=== PATIENT | female | born 1940 | race Caucasian/White ===

== ENCOUNTER 2016-09-20 16:28 | Emergency (ER) | payer MEDICARE, OTHER ==
--- NOTE | ~2016-09-20 | CR2 ---
[facility] A Service of [place] [facility] RADIOLOGY TEXT RESULTS PATIENT: AL JHA LOCATION: [facility] : 36 UNIT #: [id number] AGE: [address]: Julio Huddleston MD SEX: F ORDER DR: [id number] [facility] [place] [address] [place], [place] [address] [id number] MR#: [id number] Acc #: [id number] NAME: AL JHA. : 1940 SEX: F STUDY DATE/TIME: 09/20/2016 17:12 UNIT: [facility] ROOM: STUDY DESCRIPTION: CR Abdomen Acute Series Attending Physician: Jona Huddleston M.D. Ordering Physician: Ed Doc Gilberto Guzman Primary Care Physician: Yeison Davis M.D. MEDICAL IMAGING REPORT This report is preliminary unless electronic signature is present EXAM Acute abdominal series, 09/20/2016 COMPARISON None. CLINICAL HISTORY Nausea and vomiting and abdominal pain for 1 week. FINDINGS Accompanying chest radiograph shows no acute disease. Bowel gas pattern is normal. There is no free air or evidence of obstruction. IMPRESSION No acute disease. No evidence of free air or obstruction or other acute abnormality. Dictated by... Bandar Rodriguez M.D. THIS IS AN ELECTRONICALLY VERIFIED REPORT Bandar Rodriguez M.D. at 09/22/2016 9:45 AM TEV/psc TD: 09/20/2016 21:50 JOB #: [id number] MEDICAL IMAGING REPORT Page 1 of 1 COPY
--- NOTE | ~2016-09-20 | CT71 ---
[facility] A Service of [facility] RADIOLOGY TEXT RESULTS PATIENT: AL JHA LOCATION: [facility] : 38 UNIT #: [id number] AGE: [address]: Julio Huddleston MD SEX: F ORDER DR: [id number] [facility] [address] [place], [place] [address] [id number] E MR#: [id number] Acc #: [id number] NAME: AL JHA. : 1940 SEX: F STUDY DATE/TIME: 09/20/2016 16:44 UNIT: [facility] ROOM: STUDY DESCRIPTION: CT Head Wo Contrast Attending Physician: Jona Huddleston M.D. Ordering Physician: Ed Doctor [id number] [facility] Primary Care Physician: Yeison Davis M.D. MEDICAL IMAGING REPORT This report is preliminary unless electronic signature is present EXAM CT head without contrast dated 09/20/2016. COMPARISON CT head without contrast dated 09/20/13. HISTORY Headache, nausea, vomiting for [address] exam was performed with one or more of the following radiation dose reduction techniques: automatic exposure control, adjustment of mA and/or kV according to patient size, and iterative reconstruction. FINDINGS CT of the head was obtained without contrast in the axial plane as per the protocol. No acute intracranial hemorrhage, space-occupying mass, mass effect, midline shift or hydrocephalus. There is a small hypodense lesion noted in the lateral aspect of the region of the right anterior commissure in the inferolateral aspect of the right basal ganglia, stable. It could be related to perivascular benign Virchow-John space. An old insult with area of gliosis and encephalomalacia change is next in the differential consideration. No acute intracranial hemorrhage, hydrocephalus or midline shift is seen. Paranasal sinus mucosal thickening is noted, relatively worse in bilateral ethmoid sinuses where it is moderate. There is a small amount of fluid in the right maxillary antrum. Nasal septum is deviated to the left. Imaged orbits and the ocular structures do not demonstrate any significant abnormality. Mastoid air cells are well-aerated. Skull is unremarkable. IMPRESSION 1. No demonstrable acute intracranial abnormality. [facility] A Service of [facility] & [facility] RADIOLOGY TEXT RESULTS PATIENT: AL JHA LOCATION: [facility] : 36 UNIT #: [id number] AGE: [address]: Julio Huddleston MD SEX: F ORDER DR: 2. There is paranasal sinus mucosal thickening, worse in bilateral ethmoid and right maxillary antrum. Correlate with [id number] sinusitis, particularly in the right maxillary antrum Dictated by... Naheed Elias M.D. THIS IS AN ELECTRONICALLY VERIFIED REPORT Naheed Elias M.D. at 09/22/2016 3:02 PM CPR/ea TD: 09/20/2016 21:49 JOB #: [id number] MEDICAL IMAGING REPORT Page 1 of 1 COPY
[2016-09-20 16:11] LABS: BASOPHIL% 0.4 % (0-2.5); EOSINOPHIL# 0.1 X10e3 (0-0.7); HEMATOCRIT 45.3 % (35.0-45.0); HEMOGLOBIN 14.8 gm/dL (12.0-16.0); LYMPHOCYTE# 1.6 X10e3 (1.0-3.5); LYMPHOCYTE% 22.2 % (17.0-45.0); MEAN CELL VOLUME 93.1 FL (83-96); MEAN CORPUSCULAR HEMOGLOBIN 30.4 PG (28-34); MEAN CORPUSCULAR HGB CONC 32.6 g/dL (30-36); MEAN PLATELET VOLUME 11.4 FL (6.5-11.5); MONOCYTE# 0.3 X10e3 (0-1.0); MONOCYTE% 4.6 % (3.0-12.0); NEUTROPHIL% 70.8 % (40-75); PLATELET COUNT 126 X10e3 (140-420); RED BLOOD COUNT 4.86 X10e (3.90-5.30); RED CELL DISTRIBUTION WIDTH 13.5 % (11.0-15.5); WHITE BLOOD COUNT 7.1 X10e3 (4.0-10.5)
[2016-09-20 16:13] LABS: DIFF IND NO
[~2016-09-20 16:28] MED LIST: ALBUTEROL17 GM INH; ALPRAZOLAM PO; AZITHROMYCIN250 MG PO; BENADRYL25 MG PO; COMBIVENT U/D3 ML INH; CYMBALTA PO; DELTASONE20 MG; DIFLUCAN100 MG PO; DULOXETINE HCL60 MG PO; FLONASE 0.05% N16 GM INH; GABAPENTIN600 MG PO; IBUPROFEN PO; INDERAL20 MG PO; LOTRISONE CREAM45 GM TOP; MEDROL4 MG/DOSE- PO; MUCINEX ALLERG180 MG PO; MYSOLINE50 M1 PO; OMNICEF300 M1 PO; QUETIAPINE FUM100 MG PO; REQUIP3 MG PO; ROPINIROLE HCL3 MG PO; SEROQUEL PO; SPECTAZOLE15 GM TOP; SUBOXONE 8 MG-1 EAC1 SL; TESSALON200 MG PO; VALACYCLOVIR500 MG PO; VALTREX PO; VICODIN PO; XANAX1 MG PO; ZITHROMAX1 G/PKT PO
[2016-09-20 16:40] LABS: ALBUMIN SERUM 4.2 g/dL (3.5-5.0); BILIRUBIN, DIRECT 0.2 mg/dL (0.0-0.2); BILIRUBIN,INDIRECT 0.7 mg/dL (0.0-0.9); BILIRUBIN,TOTAL 0.9 mg/dL (0.2-2.0); BUN/CREATININE RATIO 11.42; CALCIUM SERUM 10.6 mg/dL (8.4-10.2); CREATININE SERUM 0.7 mg/dL (0.6-1.4); POTASSIUM 4.2 mmol/L (3.5-5.1); PROTEIN TOTAL SERUM 7.3 g/dL (6.0-8.3)
[2016-09-20 18:08] LABS: URINE SOURCE CLEAN CATCH
[2016-09-20 18:18] LABS: URINE APPEARANCE CLEAR; URINE BILIRUBIN NEG (NEG); URINE BLOOD TRACE (NEG); URINE COLOR DK YELLOW; URINE GLUCOSE NEG (NEG); URINE KETONE 1+ (NEG); URINE LEUKOCYTE ESTERASE 1+ (NEG); URINE NITRATE NEG (NEG); URINE PROTEIN NEG (NEG); URINE SPECIFIC GRAVITY 1.021 (1.003-1.035)
[2016-09-20 18:22] LABS: CULTURE INDICATED? YES; URINE BACTERIA AUWI NEG (NEGATIVE); URINE SQUAMOUS EPITHELIAL CELL OCC /[HPF]
== END 2016-09-20 19:02 | disposition home or self-care (01) ==
LOC: CED 16:28
PROVIDERS: Emergency Medicine
DX: J01.40 Acute pansinusitis, unspecified (principal); R19.7 Diarrhea, unspecified; R11.10 Vomiting, unspecified; F17.210 Nicotine dependence, cigarettes, uncomplicated; Z90.710 Acquired absence of both cervix and uterus; Z90.49 Acquired absence of other specified parts of digestive tract; Z79.899 Other long term (current) drug therapy
CPT/HCPCS: 36415; 70450; 74022; 80048; 80076; 81003; 83690; 85025; 87086; 96361; 96374; 96375; 99284; J2405